=== PATIENT | male | born 1990 | race Caucasian/White ===

== ENCOUNTER 2023-11-27 08:04 | Emergency (ER) | payer MEDICAID, OTHER ==
[~2023-11-27] VITALS: Ht 180.3 cm; Wt 74.6 kg
[2023-11-27 10:14] LABS: BASOPHILS % (AUTO) 0.8 % (0-1); EOSINOPHILS % (AUTO) 0.7 % (0-6); HEMATOCRIT 45.6 % (42.0-52.0); HEMOGLOBIN 15.3 g/dl (14.0-17.9); LYMPHOCYTES # (AUTO) 1.2 X10'3 (1.1-4.8); MEAN CORPUSCULAR HEMOGLOBIN 29.6 PG (27.0-31.0); MEAN CORPUSCULAR HGB CONC 33.6 g/dL (33.0-36.5); MEAN CORPUSCULAR VOLUME 88.2 FL (78-98); MEAN PLATELET VOLUME 10.5 FL (7.4-10.4); MONOCYTES # (AUTO) 0.6 X10'3 (0-0.9); MONOCYTES % (AUTO) 14.7 % (2-12); NEUTROPHILS # (AUTO) 2.2 X10'3 (1.8-7.7); NEUTROPHILS % (AUTO) 53.8 % (42-75); PLATELET COUNT 155 X10'3 (140-440); RED BLOOD COUNT 5.17 X10'6 (4.70-6.10); RED CELL DISTRIBUTION WIDTH 13.1 % (11.5-14.5)
[2023-11-27 10:20] LABS: ALANINE AMINOTRANSFERASE 24 U/L (12-78); ALBUMIN 4.1 G/DL (3.4-5.0); ALBUMIN/GLOBULIN RATIO 1.2 (1.1-1.5); ALKALINE PHOSPHATASE 59 IU/L (46-116); ANION GAP 9 (8-16); ASPARTATE AMINO TRANSFERASE 17 U/L (10-37); BILIRUBIN,TOTAL 0.4 MG/DL (0.1-1.0); BLOOD UREA NITROGEN 9 MG/DL (7-18); CALCIUM 8.7 MG/DL (8.5-10.1); CHLORIDE 104 MMOL/L (99-107); GLUCOSE 92 MG/DL (70-104); POTASSIUM 3.4 MMOL/L (3.5-5.1); SODIUM 142 MMOL/L (135-145); TOTAL CARBON DIOXIDE 29.3 MMOL/L (24-32); TOTAL PROTEIN 7.6 G/DL (6.4-8.2); eCRCL 124 ML/MIN; eGFR > 90 ML/MIN
[2023-11-27 11:27] VITALS: BP 124/85; PULSE 64; RESP 16; O2SAT 100
[2023-11-28 06:45] VITALS: TEMP 97.8
== END 2023-11-27 12:00 | disposition home or self-care (01) ==
LOC: ER 08:04
DX: R51.9 Headache, unspecified (principal); R05.9 Cough, unspecified; R50.9 Fever, unspecified; F17.210 Nicotine dependence, cigarettes, uncomplicated; R40.4 Transient alteration of awareness; Z88.1 Allergy status to other antibiotic agents
CPT/HCPCS: 36415; 70450; 80053; 85025; 85651; 99284